=== PATIENT | male | born 1975 | race Caucasian/White ===

== ENCOUNTER 2021-01-27 19:34 | Inpatient (IN) | payer OTHER ==
[2021-01-27] MEDS ORDERED: ACETAMINOPHEN 1000 MG/100 ML VIAL IVPB ONE (21:20)
[2021-01-27] MEDS ORDERED: SODIUM CHLORIDE 0.9% 500 ML INFUS.BAG IV ONE (21:20)
[2021-01-27] MEDS ORDERED: guaiFENesin 200 MG/10 ML 10 ML UNIT-DOSE CUPS PO ONE (21:22)
[2021-01-27] MEDS ORDERED: guaiFENesin/D-METHORPHAN HB 10 ML UNIT-DOSE CUPS ONE (21:30)
[2021-01-27] MEDS ORDERED: ACETAMINOPHEN INJECTION 100 ML IVPB ONE (21:30)
[2021-01-27 22:39] LABS: VENOUS BASE EXCESS 4.3 mmol/L (-2-2); VENOUS O2 SATURATION 63.5 % (70-80); VENOUS PCO2 48.3 mmHg (38-52); VENOUS PH 7.412 (7.310-7.410)
[2021-01-27 22:40] LABS: BASO % 0.7 % (0-2.0); EOS % 0.8 % (0-4.5); HEMATOCRIT 47.2 % (35.4-49); HEMOGLOBIN 16.5 GM/dL (11.7-16.9); MCH 35.8 pg (25.7-33.7); MCHC 34.9 g/dl (32.0-35.9); MEAN CELL VOLUME 102.6 fl (80-96); MEAN PLT VOLUME 8.7 fl (7.5-11.1); MONO % 8.2 % (3.8-10.2); NEUT % 75.3 % (42.8-82.8); PLATELET COUNT 295 10^3/uL (134-434); RBC 4.59 M/mm3 (4.00-5.60); WHITE BLOOD COUNT 7.5 K/mm3 (4.0-10.0)
[2021-01-27 22:59] LABS: CHLORIDE 97 mmol/L (98-107); SODIUM 136 mmol/L (136-145)
[2021-01-27 23:03] LABS: CALCIUM 9.2 mg/dL (8.5-10.1)
[2021-01-27 23:04] LABS: ALBUMIN 3.4 g/dl (3.4-5.0); ANION GAP 6 MMOL/L (8-16); BLOOD UREA NITROGEN 4.9 mg/dL (7-18); CO2 32 mmol/L (21-32); GLUCOSE,RANDOM 121 mg/dL (74-106)
[2021-01-27 23:07] LABS: CREATININE 0.8 mg/dL (0.55-1.3); SGOT/AST 103 U/L (15-37); SGPT/ALT 111 U/L (13-61)
[2021-01-27 23:08] LABS: BILIRUBIN,TOTAL 1.6 mg/dL (0.2-1); LDH 267 U/L (87-246); TOT PROT 7.5 g/dl (6.4-8.2)
[2021-01-27 23:10] LABS: ALK PHOS 122 U/L (45-117)
[2021-01-28 03:00] LABS: URINE APPEARANCE CLEAR; URINE BILIRUBIN 1+ (NEGATIVE); URINE COLOR DK YELLOW; URINE GLUCOSE (UA) NEGATIVE (NEGATIVE); URINE KETONE NEGATIVE (NEGATIVE); URINE LEUK ESTERASE NEGATIVE (NEGATIVE); URINE NITRITE NEGATIVE (NEGATIVE); URINE PROTEIN TRACE (NEGATIVE)
[2021-01-28 08:05] LABS: CHLORIDE 99 mmol/L (98-107); SODIUM 138 mmol/L (136-145)
[2021-01-28 08:08] LABS: ALBUMIN 3.1 g/dl (3.4-5.0)
[2021-01-28 08:09] LABS: ANION GAP 9 MMOL/L (8-16); BLOOD UREA NITROGEN 6.4 mg/dL (7-18); CALCIUM 8.9 mg/dL (8.5-10.1); CO2 30 mmol/L (21-32); GLUCOSE,RANDOM 121 mg/dL (74-106)
[2021-01-28 08:12] LABS: CREATININE 0.7 mg/dL (0.55-1.3); SGOT/AST 91 U/L (15-37); SGPT/ALT 93 U/L (13-61)
[2021-01-28] MEDS: DEXTROSE 5%-0.45% SALINE 1,000 ML IV SCH ×2 (08:12→09:27)
[2021-01-28 08:14] LABS: BILIRUBIN,TOTAL 2.2 mg/dL (0.2-1); TOT PROT 6.8 g/dl (6.4-8.2)
[2021-01-28 08:15] LABS: ALK PHOS 110 U/L (45-117)
[2021-01-28 08:21] LABS: BASO % 2.8 % (0-2.0); EOS % 1.3 % (0-4.5); HEMATOCRIT 44.9 % (35.4-49); HEMOGLOBIN 15.8 GM/dL (11.7-16.9); LYMPH % 17.2 % (8-40); MCH 36.4 pg (25.7-33.7); MCHC 35.1 g/dl (32.0-35.9); MEAN CELL VOLUME 103.8 fl (80-96); MEAN PLT VOLUME 9.5 fl (7.5-11.1); MONO % 6.9 % (3.8-10.2); NEUT % 71.8 % (42.8-82.8); PLATELET COUNT 260 10^3/uL (134-434); RBC 4.33 M/mm3 (4.00-5.60); RDW 15.3 % (11.9-15.9); WHITE BLOOD COUNT 7.1 K/mm3 (4.0-10.0)
[2021-01-28] MEDS ORDERED: cefTRIAXone SODIUM 1 GM VIAL ONE (09:17)
[2021-01-28] MEDS ORDERED: DEXTROSE 5%-WATER - 50 ML IVPB ONE (09:17)
[2021-01-28] MEDS ORDERED: ACETAMINOPHEN 325 MG TABLET (FP) PO PRN (09:23)
[2021-01-28] MEDS ORDERED: ALBUTEROL SO4 HFA INHALER IH PRN (09:24)
[2021-01-28] MEDS: ENOXAPARIN NA (PORCINE) 40 MG/0.4 ML DISP.SYRIN SQ SCH (09:28)
[2021-01-28] MEDS: PANTOPRAZOLE 40 MG TABLET PO SCH (09:28)
[2021-01-28] MEDS: CEFTRIAXONE 1 GM in DEXTROSE 5%-WATER - 50 ML IVPB SCH (09:28)
[2021-01-28] MEDS ORDERED: COLCHICINE 0.6 MG CAP PO SCH (12:45)
[2021-01-28] MEDS ORDERED: CASPOFUNGIN ACETATE 70 MG in SODIUM CHLORIDE 250 ML IVPB ONE (13:00)
[2021-01-28] MEDS: POTASSIUM CHLORIDE TABS 20 MEQ TABLET.ER (FP) PO SCH (13:32)
[2021-01-28] MEDS ORDERED: COLCHICINE 0.6 MG TAB PO SCH (13:49)
[2021-01-28] MEDS: COLCHICINE 0.6 MG TAB PO SCH (14:07)
[2021-01-28 15:15] LABS: HIV INTERPRETATION NEGATIVE (NEGATIVE)
[2021-01-28] MEDS: NYSTATIN 500,000 UNITS/5 ML SUSPENSION PO SCH (18:02)
[2021-01-28] MEDS ORDERED: INDOMETHACIN 50 MG CAPSULE PO ONE (18:15)
[2021-01-29] MEDS: NYSTATIN 500,000 UNITS/5 ML SUSPENSION PO SCH ×4 (01:21→17:44)
[2021-01-29] MEDS: DEXTROSE 5%-0.45% SALINE 1,000 ML IV SCH ×2 (01:23→05:43)
[2021-01-29 08:48] LABS: BASO % 0.8 % (0-2.0); EOS % 0.8 % (0-4.5); HEMATOCRIT 41.8 % (35.4-49); HEMOGLOBIN 14.4 GM/dL (11.7-16.9); LYMPH % 12.2 % (8-40); MCH 36.8 pg (25.7-33.7); MCHC 34.4 g/dl (32.0-35.9); MEAN CELL VOLUME 107.1 fl (80-96); MEAN PLT VOLUME 9.7 fl (7.5-11.1); MONO % 8.2 % (3.8-10.2); PLATELET COUNT 197 10^3/uL (134-434); RBC 3.91 M/mm3 (4.00-5.60); WHITE BLOOD COUNT 6.9 K/mm3 (4.0-10.0)
[2021-01-29] MEDS ORDERED: cefTRIAXone SODIUM 1 GM VIAL ONE (09:05)
[2021-01-29] MEDS ORDERED: DEXTROSE 5%-WATER - 50 ML IVPB ONE (09:05)
[2021-01-29 09:06] LABS: CHLORIDE 100 mmol/L (98-107); SODIUM 139 mmol/L (136-145)
[2021-01-29 09:08] LABS: ALBUMIN 2.8 g/dl (3.4-5.0); CALCIUM 8.2 mg/dL (8.5-10.1)
[2021-01-29 09:09] LABS: ANION GAP 8 MMOL/L (8-16); BLOOD UREA NITROGEN 6.4 mg/dL (7-18); CO2 30 mmol/L (21-32); GLUCOSE,RANDOM 136 mg/dL (74-106)
[2021-01-29 09:11] LABS: SGOT/AST 50 U/L (15-37); SGPT/ALT 71 U/L (13-61)
[2021-01-29 09:12] LABS: CREATININE 0.7 mg/dL (0.55-1.3)
[2021-01-29 09:13] LABS: BILIRUBIN,TOTAL 1.6 mg/dL (0.2-1); TOT PROT 6.4 g/dl (6.4-8.2)
[2021-01-29 09:14] LABS: ALK PHOS 100 U/L (45-117)
[2021-01-29] MEDS: COLCHICINE 0.6 MG TAB PO SCH ×2 (09:54→21:22)
[2021-01-29] MEDS: ENOXAPARIN NA (PORCINE) 40 MG/0.4 ML DISP.SYRIN SQ SCH (09:54)
[2021-01-29] MEDS: POTASSIUM CHLORIDE TABS 20 MEQ TABLET.ER (FP) PO SCH (09:54)
[2021-01-29] MEDS: CEFTRIAXONE 1 GM in DEXTROSE 5%-WATER - 50 ML IVPB SCH (09:55)
[2021-01-29] MEDS: PANTOPRAZOLE 40 MG TABLET PO SCH (09:55)
[2021-01-29 10:13] LABS: ANISOCYTOSIS 1+; MACROCYTOSIS 1+; PLATELET ESTIMATE NORMAL
[2021-01-29] MEDS ORDERED: morphine SULFATE 4 MG/ML VIAL IVPUSH ONE (11:30)
[2021-01-29] MEDS: CASPOFUNGIN ACETATE 50 MG in SODIUM CHLORIDE 250 ML IVPB SCH (14:08)
[2021-01-29] MEDS: morphine SULFATE 4 MG/ML VIAL IVPUSH PRN ×2 (17:42→21:42)
[2021-01-29] MEDS: INDOMETHACIN 50 MG CAPSULE PO SCH (21:41)
[2021-01-30] MEDS: NYSTATIN 500,000 UNITS/5 ML SUSPENSION PO SCH ×4 (00:31→17:46)
[2021-01-30] MEDS ORDERED: ONDANSETRON 4 MG/2 ML VIAL IVPUSH ONE (02:30)
[2021-01-30] MEDS: morphine SULFATE 4 MG/ML VIAL IVPUSH PRN ×6 (02:31→22:59)
[2021-01-30] MEDS: INDOMETHACIN 50 MG CAPSULE PO SCH ×3 (05:45→21:30)
[2021-01-30 08:52] LABS: BASO % 0.5 % (0-2.0); EOS % 0.3 % (0-4.5); HEMATOCRIT 40.6 % (35.4-49); HEMOGLOBIN 14.1 GM/dL (11.7-16.9); LYMPH % 13.9 % (8-40); MCHC 34.7 g/dl (32.0-35.9); MEAN CELL VOLUME 106.6 fl (80-96); MEAN PLT VOLUME 9.6 fl (7.5-11.1); MONO % 10.3 % (3.8-10.2); PLATELET COUNT 193 10^3/uL (134-434); RBC 3.81 M/mm3 (4.00-5.60); WHITE BLOOD COUNT 8.6 K/mm3 (4.0-10.0)
[2021-01-30 09:09] LABS: CHLORIDE 99 mmol/L (98-107); SODIUM 137 mmol/L (136-145)
[2021-01-30 09:12] LABS: ALBUMIN 2.9 g/dl (3.4-5.0); ANION GAP 5 MMOL/L (8-16); BLOOD UREA NITROGEN 4.6 mg/dL (7-18); CALCIUM 8.3 mg/dL (8.5-10.1); CO2 34 mmol/L (21-32); GLUCOSE,RANDOM 129 mg/dL (74-106)
[2021-01-30 09:15] LABS: CREATININE 0.6 mg/dL (0.55-1.3); SGOT/AST 45 U/L (15-37); SGPT/ALT 61 U/L (13-61); URIC ACID 7.9 mg/dL (2.6-7.2)
[2021-01-30 09:17] LABS: BILIRUBIN,TOTAL 1.9 mg/dL (0.2-1); TOT PROT 6.4 g/dl (6.4-8.2)
[2021-01-30 09:18] LABS: ALK PHOS 93 U/L (45-117)
[2021-01-30] MEDS ORDERED: cefTRIAXone SODIUM 1 GM VIAL ONE (10:30)
[2021-01-30] MEDS ORDERED: DEXTROSE 5%-WATER - 50 ML IVPB ONE (10:30)
[2021-01-30] MEDS: PANTOPRAZOLE 40 MG TABLET PO SCH (10:42)
[2021-01-30] MEDS: ENOXAPARIN NA (PORCINE) 40 MG/0.4 ML DISP.SYRIN SQ SCH (10:42)
[2021-01-30] MEDS: POTASSIUM CHLORIDE TABS 20 MEQ TABLET.ER (FP) PO SCH (10:42)
[2021-01-30] MEDS: CEFTRIAXONE 1 GM in DEXTROSE 5%-WATER - 50 ML IVPB SCH (10:43)
[2021-01-30] MEDS: COLCHICINE 0.6 MG TAB PO SCH ×2 (10:43→21:30)
[2021-01-30] MEDS: metoPROLOL SUCCINATE 25 MG TAB.SR.24H (FP) PO SCH (10:43)
[2021-01-30] MEDS: CASPOFUNGIN ACETATE 50 MG in SODIUM CHLORIDE 250 ML IVPB SCH (14:59)
[2021-01-30] MEDS: ONDANSETRON 4 MG/2 ML VIAL IVPUSH PRN ×2 (16:21→22:46)
[2021-01-31] MEDS: NYSTATIN 500,000 UNITS/5 ML SUSPENSION PO SCH ×5 (01:27→23:42)
[2021-01-31] MEDS: morphine SULFATE 4 MG/ML VIAL IVPUSH PRN ×2 (04:18→08:26)
[2021-01-31 07:32] LABS: BASO % 0.6 % (0-2.0); EOS % 0.8 % (0-4.5); HEMATOCRIT 41.6 % (35.4-49); HEMOGLOBIN 14.2 GM/dL (11.7-16.9); LYMPH % 13.7 % (8-40); MCH 36.9 pg (25.7-33.7); MCHC 34.1 g/dl (32.0-35.9); MEAN CELL VOLUME 108.1 fl (80-96); MEAN PLT VOLUME 9.9 fl (7.5-11.1); MONO % 11.5 % (3.8-10.2); NEUT % 73.4 % (42.8-82.8); PLATELET COUNT 198 10^3/uL (134-434); RBC 3.85 M/mm3 (4.00-5.60)
[2021-01-31 07:57] LABS: CALCIUM 8.7 mg/dL (8.5-10.1)
[2021-01-31 07:58] LABS: ALBUMIN 2.8 g/dl (3.4-5.0); BLOOD UREA NITROGEN 6.8 mg/dL (7-18)
[2021-01-31 08:01] LABS: CREATININE 0.7 mg/dL (0.55-1.3)
[2021-01-31 08:02] LABS: BILIRUBIN,TOTAL 2.3 mg/dL (0.2-1); TOT PROT 6.7 g/dl (6.4-8.2)
[2021-01-31] MEDS: INDOMETHACIN 50 MG CAPSULE PO SCH ×3 (08:27→16:47)
[2021-01-31] MEDS ORDERED: cefTRIAXone SODIUM 1 GM VIAL ONE (09:00)
[2021-01-31] MEDS ORDERED: DEXTROSE 5%-WATER - 50 ML IVPB ONE (09:00)
[2021-01-31] MEDS: CEFTRIAXONE 1 GM in DEXTROSE 5%-WATER - 50 ML IVPB SCH (09:06)
[2021-01-31] MEDS: ENOXAPARIN NA (PORCINE) 40 MG/0.4 ML DISP.SYRIN SQ SCH (09:07)
[2021-01-31] MEDS: COLCHICINE 0.6 MG TAB PO SCH ×2 (09:07→21:00)
[2021-01-31] MEDS: metoPROLOL SUCCINATE 25 MG TAB.SR.24H (FP) PO SCH (09:07)
[2021-01-31] MEDS: POTASSIUM CHLORIDE TABS 20 MEQ TABLET.ER (FP) PO SCH (09:07)
[2021-01-31] MEDS: PANTOPRAZOLE 40 MG TABLET PO SCH (09:07)
[2021-01-31] MEDS: morphine SULFATE 4 MG/ML VIAL IVPB PRN ×3 (12:22→20:56)
[2021-01-31] MEDS: CASPOFUNGIN ACETATE 50 MG in SODIUM CHLORIDE 250 ML IVPB SCH (15:03)
[2021-01-31 16:04] VITALS: BMI 41.2
[2021-01-31] MEDS: ONDANSETRON 4 MG/2 ML VIAL IVPUSH PRN (20:56)
[2021-02-01] MEDS ORDERED: morphine SULFATE 4 MG/ML VIAL IVPUSH PRN (01:35)
[2021-02-01] MEDS: NYSTATIN 500,000 UNITS/5 ML SUSPENSION PO SCH ×3 (05:02→17:54)
[2021-02-01] MEDS ORDERED: PT OWN MED DRAWER 7, Y5N ONE (08:31)
[2021-02-01] MEDS ORDERED: cefTRIAXone SODIUM 1 GM VIAL ONE (08:32)
[2021-02-01] MEDS ORDERED: DEXTROSE 5%-WATER - 50 ML IVPB ONE (08:32)
[2021-02-01] MEDS: INDOMETHACIN 50 MG CAPSULE PO SCH ×3 (08:53→16:57)
[2021-02-01] MEDS: PANTOPRAZOLE 40 MG TABLET PO SCH (09:05)
[2021-02-01] MEDS: metoPROLOL SUCCINATE 25 MG TAB.SR.24H (FP) PO SCH (09:05)
[2021-02-01] MEDS: COLCHICINE 0.6 MG TAB PO SCH (09:05)
[2021-02-01] MEDS: POTASSIUM CHLORIDE TABS 20 MEQ TABLET.ER (FP) PO SCH (09:06)
[2021-02-01] MEDS: ENOXAPARIN NA (PORCINE) 40 MG/0.4 ML DISP.SYRIN SQ SCH (09:06)
[2021-02-01] MEDS: CEFTRIAXONE 1 GM in DEXTROSE 5%-WATER - 50 ML IVPB SCH (09:06)
[2021-02-01 09:22] LABS: BASO % 1.2 % (0-2.0); EOS % 1.7 % (0-4.5); HEMATOCRIT 38.8 % (35.4-49); HEMOGLOBIN 13.3 GM/dL (11.7-16.9); LYMPH % 14.3 % (8-40); MCH 36.7 pg (25.7-33.7); MCHC 34.3 g/dl (32.0-35.9); MEAN CELL VOLUME 107.1 fl (80-96); MEAN PLT VOLUME 9.6 fl (7.5-11.1); MONO % 12.9 % (3.8-10.2); NEUT % 69.9 % (42.8-82.8); PLATELET COUNT 225 10^3/uL (134-434); RBC 3.62 M/mm3 (4.00-5.60); RDW 15.1 % (11.9-15.9); WHITE BLOOD COUNT 5.1 K/mm3 (4.0-10.0)
[2021-02-01 11:10] LABS: ANISOCYTOSIS 2+; MACROCYTOSIS 2+; PLATELET ESTIMATE ADEQUATE
[2021-02-01 11:14] LABS: CALCIUM 8.6 mg/dL (8.5-10.1)
[2021-02-01 11:15] LABS: ALBUMIN 2.6 g/dl (3.4-5.0); BLOOD UREA NITROGEN 8.4 mg/dL (7-18)
[2021-02-01 11:18] LABS: CREATININE 0.6 mg/dL (0.55-1.3)
[2021-02-01 11:19] LABS: BILIRUBIN,TOTAL 1.2 mg/dL (0.2-1); TOT PROT 6.3 g/dl (6.4-8.2)
[2021-02-01 11:24] LABS: N-TERMINAL BNP 543.5 pg/ml (5-125)
[2021-02-01] MEDS ORDERED: ACETAMINOPHEN 325 MG TABLET (FP) PO PRN (12:31)
[2021-02-01] MEDS: CASPOFUNGIN ACETATE 50 MG in SODIUM CHLORIDE 250 ML IVPB SCH (14:03)
[2021-02-02] MEDS: NYSTATIN 500,000 UNITS/5 ML SUSPENSION PO SCH ×4 (00:28→17:19)
[2021-02-02 08:29] LABS: BASO % 1.1 % (0-2.0); EOS % 1.5 % (0-4.5); HEMATOCRIT 42.3 % (35.4-49); HEMOGLOBIN 14.7 GM/dL (11.7-16.9); LYMPH % 13.5 % (8-40); MCH 36.7 pg (25.7-33.7); MCHC 34.7 g/dl (32.0-35.9); MEAN CELL VOLUME 105.9 fl (80-96); MEAN PLT VOLUME 9.4 fl (7.5-11.1); MONO % 14.4 % (3.8-10.2); NEUT % 69.5 % (42.8-82.8); PLATELET COUNT 253 10^3/uL (134-434); RDW 15.2 % (11.9-15.9); WHITE BLOOD COUNT 5.9 K/mm3 (4.0-10.0)
[2021-02-02 09:16] LABS: CALCIUM 8.9 mg/dL (8.5-10.1)
[2021-02-02 09:17] LABS: ALBUMIN 2.8 g/dl (3.4-5.0); BLOOD UREA NITROGEN 7.3 mg/dL (7-18)
[2021-02-02 09:20] LABS: CREATININE 0.7 mg/dL (0.55-1.3)
[2021-02-02 09:21] LABS: BILIRUBIN,TOTAL 1.6 mg/dL (0.2-1); TOT PROT 6.7 g/dl (6.4-8.2)
[2021-02-02] MEDS: ENOXAPARIN NA (PORCINE) 40 MG/0.4 ML DISP.SYRIN SQ SCH ×2 (09:35→09:39)
[2021-02-02] MEDS: INDOMETHACIN 50 MG CAPSULE PO SCH ×3 (09:36→17:00)
[2021-02-02] MEDS: COLCHICINE 0.6 MG TAB PO SCH (09:36)
[2021-02-02] MEDS: POTASSIUM CHLORIDE TABS 20 MEQ TABLET.ER (FP) PO SCH (09:36)
[2021-02-02] MEDS: metoPROLOL SUCCINATE 25 MG TAB.SR.24H (FP) PO SCH (09:36)
[2021-02-02] MEDS: PANTOPRAZOLE 40 MG TABLET PO SCH (09:37)
[2021-02-02] MEDS ORDERED: cefTRIAXone SODIUM 1 GM VIAL ONE (09:52)
[2021-02-02] MEDS ORDERED: DEXTROSE 5%-WATER - 50 ML IVPB ONE (09:52)
[2021-02-02] MEDS: CEFTRIAXONE 1 GM in DEXTROSE 5%-WATER - 50 ML IVPB SCH (09:57)
[2021-02-02] MEDS: CASPOFUNGIN ACETATE 50 MG in SODIUM CHLORIDE 250 ML IVPB SCH (12:59)
[2021-02-03] MEDS: NYSTATIN 500,000 UNITS/5 ML SUSPENSION PO SCH ×3 (00:21→11:32)
[2021-02-03 05:57] VITALS: BP 128/88; PULSE 81; TEMP 98.2
[2021-02-03] MEDS ORDERED: cefTRIAXone SODIUM 1 GM VIAL ONE (09:13)
[2021-02-03] MEDS ORDERED: DEXTROSE 5%-WATER - 50 ML IVPB ONE (09:13)
[2021-02-03] MEDS: metoPROLOL SUCCINATE 25 MG TAB.SR.24H (FP) PO SCH (10:17)
[2021-02-03] MEDS: COLCHICINE 0.6 MG TAB PO SCH (10:17)
[2021-02-03] MEDS: INDOMETHACIN 50 MG CAPSULE PO SCH ×2 (10:17→13:05)
[2021-02-03] MEDS: ENOXAPARIN NA (PORCINE) 40 MG/0.4 ML DISP.SYRIN SQ SCH (10:18)
[2021-02-03] MEDS: POTASSIUM CHLORIDE TABS 20 MEQ TABLET.ER (FP) PO SCH (10:18)
[2021-02-03] MEDS: CEFTRIAXONE 1 GM in DEXTROSE 5%-WATER - 50 ML IVPB SCH (10:18)
[2021-02-03] MEDS: PANTOPRAZOLE 40 MG TABLET PO SCH (10:18)
== END 2021-02-03 15:06 | disposition home or self-care (01) | DRG 242 ==
LOC: JER 19:34 → JERBED 01-28 00:06 → J7W 01-28 08:59
PROVIDERS: ADMIT Internal Medicine; ATTEND Internal Medicine
DX: B37.81 Candidal esophagitis (principal); Z68.41 Body mass index [BMI] 40.0-44.9, adult; E66.01 Morbid (severe) obesity due to excess calories; I48.92 Unspecified atrial flutter; R16.0 Hepatomegaly, not elsewhere classified; K76.0 Fatty (change of) liver, not elsewhere classified; K80.20 Calculus of gallbladder without cholecystitis without obstruction; M10.9 Gout, unspecified; R74.8 Abnormal levels of other serum enzymes; K21.9 Gastro-esophageal reflux disease without esophagitis
CPT/HCPCS: 36415; 71045-TC-FY; 71250-TC; 76705-TC; 80053; 80061; 81003; 82550; 82553; 82728; 82803; 83036; 83605; 83615; 83880; 84443; 84484; 84550; 85025; 85379; 86705; 86707; 86708; 87040; 87086; 87340; 87350; 87389; 87522; 87804; 93005; 93010; 93306-TC; 99285-25; C9803; J0131; J0637; U0003; U0005

== ENCOUNTER 2021-04-29 06:20 | Day surgery (SDC) | payer OTHER ==
[2021-04-27 15:59] VITALS: BMI 38.9
[2021-04-29] MEDS ORDERED: oxyCODONE HCL 5 MG TABLET PO PRN ×3 (06:52→09:50)
[2021-04-29] MEDS ORDERED: ACETAMINOPHEN 325 MG TABLET (FP) PO PRN (06:52)
[2021-04-29] MEDS ORDERED: BUPIVACAINE HCL/PF 0.25% (2.5MG/ML) 10 ML VIAL ONE ×2 (07:07→09:22)
[2021-04-29] MEDS ORDERED: PROPOFOL 20 ML ONE ×3 (07:19→08:04)
[2021-04-29] MEDS ORDERED: SUCCINYLCHOLINE CHLORIDE 200 MG/10 ML SYRINGE ONE (07:19)
[2021-04-29] MEDS ORDERED: MIDAZOLAM HCL 2 MG/2 ML SINGLE DOSE VIAL ONE (07:35)
[2021-04-29] MEDS ORDERED: KETAMINE HCL 200 MG/20 ML VIAL ONE (07:36)
[2021-04-29] MEDS ORDERED: ceFAZolin SODIUM 1 GM VIAL IVPB ONE (07:45)
[2021-04-29] MEDS ORDERED: BUPIVACAINE HCL/PF 0.25% (2.5MG/ML) 10 ML VIAL IJ ONE (08:02)
[2021-04-29] MEDS ORDERED: LIDOCAINE HCL/PF 2% SDV 5ML VIAL ONE (08:29)
[2021-04-29] MEDS ORDERED: SODIUM CHLORIDE 0.9% P/F 10 ML VIAL IJ ONE (08:43)
[2021-04-29] MEDS ORDERED: TRANEXAMIC ACID 1000 MG/10 ML VIAL ONE (08:43)
[2021-04-29] MEDS ORDERED: ACETAMINOPHEN 1000 MG/100 ML BAG IVPB ONE (09:50)
[2021-04-29] MEDS ORDERED: LACTATED RINGERS SOLUTION 1,000 ML IV SCH (10:00)
[2021-04-29 10:50] VITALS: TEMP 98
[2021-04-29 11:26] VITALS: BP 135/89; PULSE 85
== END 2021-04-29 11:15 | disposition home or self-care (01) ==
LOC: FASU 06:20
PROVIDERS: ATTEND Orthopaedic Surgery
PROC: 01N50ZZ Release Median Nerve, Open Approach (ICD-10-PCS; principal; 2021-04-29 08:03)
PROC: 0MB30ZZ Excision of Right Elbow Bursa and Ligament, Open Approach (ICD-10-PCS; 2021-04-29 08:03)
DX: G56.01 Carpal tunnel syndrome, right upper limb (principal)
CPT/HCPCS: 87070; 87205; 88304-TC; 88313-TC; 94760

== ENCOUNTER 2021-05-30 20:44 | Emergency (ER) | payer OTHER ==
[2021-05-30] MEDS ORDERED: KETOROLAC TROMETHAMINE 60 MG/2 ML VIAL IM ONE (21:07)
[2021-05-30 21:09] VITALS: BP 122/72; PULSE 64; TEMP 98; BMI 38.9
[2021-05-30] MEDS ORDERED: KETOROLAC TROMETHAMINE 60 MG/2 ML VIAL ONE (21:09)
[2021-05-30 22:21] LABS: ALBUMIN 3.2 g/dl (3.4-5.0); BILIRUBIN,TOTAL 1.5 mg/dl (0.2-1); CALCIUM 9.8 mg/dl (8.5-10); CREATININE 0.9 mg/dl (0.55-1.3); TOT PROT 7.2 g/dl (6.4-8.2)
[2021-05-30 23:44] LABS: BASO % 1.3 % (0-2.0); EOS % 2.1 % (0-4.5); HEMATOCRIT 47.2 % (35.4-49); HEMOGLOBIN 15.9 GM/dL (11.7-16.9); LYMPH % 16.7 % (8-40); MCH 32.7 pg (25.7-33.7); MCHC 33.8 g/dl (32.0-35.9); MEAN CELL VOLUME 96.9 fl (80-96); MEAN PLT VOLUME 9.4 fl (7.5-11.1); MONO % 11.3 % (3.8-10.2); NEUT % 68.6 % (42.8-82.8); PLATELET COUNT 359 10^3/uL (134-434); RBC 4.87 M/mm3 (4.00-5.60); RDW 17.3 % (11.9-15.9)
== END 2021-05-31 02:16 | disposition home or self-care (01) ==
LOC: FER 20:44
PROC: 3E023GC Introduction of Other Therapeutic Substance into Muscle, Percutaneous Approach (ICD-10-PCS; principal; 2021-05-30)
DX: M25.561 Pain in right knee (principal)
CPT/HCPCS: 36415; 73562-TC-RT-FY; 80053; 82550; 84484; 85025; 93005; 99285-25

== ENCOUNTER 2021-07-07 05:53 | Day surgery (SDC) | payer OTHER ==
[2021-07-01 16:08] VITALS: BMI 35.0
[2021-07-07] MEDS ORDERED: ONDANSETRON 4 MG/2 ML VIAL ONE (07:01)
[2021-07-07] MEDS ORDERED: DEXAMETHASONE SOD PHOSPHATE 4 MG/1 ML VIAL ONE (07:01)
[2021-07-07] MEDS ORDERED: PROPOFOL 20 ML ONE ×3 (07:01→08:37)
[2021-07-07] MEDS ORDERED: MIDAZOLAM HCL 2 MG/2 ML SINGLE DOSE VIAL ONE (07:01)
[2021-07-07] MEDS ORDERED: LIDOCAINE HCL 1%, 10 MG/ML (20ML VIAL) ONE (07:07)
[2021-07-07] MEDS ORDERED: BUPIVACAINE HCL/PF 2.5 MG/ML - 30 ML VIAL IJ ONE (07:17)
[2021-07-07] MEDS ORDERED: oxyCODONE HCL 5 MG TABLET PO PRN ×2 (07:24→09:19)
[2021-07-07] MEDS ORDERED: IBUPROFEN 400 MG TABLET (FP) PO PRN (07:24)
[2021-07-07] MEDS ORDERED: ACETAMINOPHEN 325 MG TABLET (FP) PO PRN (07:24)
[2021-07-07] MEDS ORDERED: FAMOTIDINE 20 MG/50 ML IVPB 20 MG/50 ML MG IVPB ONE (07:26)
[2021-07-07] MEDS ORDERED: METOPROLOL TARTRATE 5 MG/5 ML VIAL ONE (07:26)
[2021-07-07] MEDS ORDERED: PHENYLEPHRINE HCL 10 MG/1 ML SINGLE DOSE VIAL ONE (07:46)
[2021-07-07] MEDS ORDERED: LACTATED RINGERS SOLUTION 1,000 ML IV SCH (09:30)
[2021-07-07 11:14] VITALS: BP 110/70; PULSE 77; TEMP 97.3
== END 2021-07-07 11:00 | disposition home or self-care (01) ==
LOC: FASU 05:53
PROVIDERS: ATTEND Orthopaedic Surgery
PROC: 01N50ZZ Release Median Nerve, Open Approach (ICD-10-PCS; principal; 2021-07-07 08:03)
PROC: 0MT40ZZ Resection of Left Elbow Bursa and Ligament, Open Approach (ICD-10-PCS; 2021-07-07 08:03)
DX: G56.02 Carpal tunnel syndrome, left upper limb (principal)
CPT/HCPCS: 88304-TC; 88313-TC; 94760

== ENCOUNTER 2021-07-21 14:35 | Day surgery (SDC) | payer OTHER ==
[2021-07-21 14:45] VITALS: BMI 34.9
[2021-07-21] MEDS ORDERED: dilTIAZem HCL 50 MG/10 ML - 10 ML VIAL IVPUSH ONE ×2 (15:02→15:18)
[2021-07-21] MEDS ORDERED: dilTIAZem HCL 125 MG/25 ML - 25 ML VIAL ONE (15:04)
[2021-07-21] MEDS ORDERED: VANCOMYCIN 1,000 MG VIAL (RESTRICTED TO ID ONLY) ONE (15:16)
[2021-07-21] MEDS ORDERED: ceFAZolin SODIUM 1 GM VIAL ONE ×3 (15:16→23:52)
[2021-07-21] MEDS ORDERED: SODIUM CHLORIDE 1,000 ML IV ONE (15:23)
[2021-07-21 15:24] LABS: HEMATOCRIT 50.4 % (35.4-49); HEMOGLOBIN 16.8 G/dL (11.7-16.9); INR 1.26 (0.83-1.09); MCH 30.6 pg (25.7-33.7); MCHC 33.3 g/dl (32.0-35.9); MEAN CELL VOLUME 91.8 fl (80-96); MEAN PLT VOLUME 8.9 fl (7.5-11.1); PLATELET COUNT 338.6 10^3/uL (134-434); PROTHROMBIN TIME (PATIENT) 14.5 SEC (9.7-13.0); RBC 5.49 10^6/uL (4.00-5.60); RDW 15.4 % (11.9-15.9); WHITE BLOOD COUNT 9.1 10^3/uL (4.0-10.8)
[2021-07-21] MEDS ORDERED: LIDOCAINE 1%/EPI 1:100000 (20 ML MULTI DOSE VIAL) ONE (15:25)
[2021-07-21 15:29] LABS: CALCIUM 9.3 mg/dl (8.5-10); CREATININE 0.9 mg/dl (0.55-1.3)
[2021-07-21] MEDS ORDERED: MIDAZOLAM HCL 2 MG/2 ML SINGLE DOSE VIAL ONE ×3 (15:44→16:17)
[2021-07-21] MEDS ORDERED: PROPOFOL 20 ML ONE ×2 (15:44)
[2021-07-21] MEDS ORDERED: DEXAMETHASONE SOD PHOSPHATE 4 MG/1 ML VIAL ONE (15:54)
[2021-07-21] MEDS ORDERED: ONDANSETRON 4 MG/2 ML VIAL ONE (15:54)
[2021-07-21] MEDS ORDERED: KETOROLAC TROMETHAMINE 30 MG/1 ML VIAL ONE (15:54)
[2021-07-21] MEDS ORDERED: BENZOIN/ALOE VERA/STORAX/TOLU 30 ML TINCTURE ONE (16:40)
[2021-07-21] MEDS ORDERED: GUM MASTIC/STORAX/MSAL/ALCOHOL 1 DRP DROPSBTL MC ONE (16:42)
[2021-07-21] MEDS: ACETAMINOPHEN 1000 MG/100 ML BAG IVPB ONE ×2 (16:55→18:03)
[2021-07-21] MEDS ORDERED: ACETAMINOPHEN INJECTION 100 ML IVPB ONE (16:55)
[2021-07-21] MEDS: oxyCODONE HCL 10 MG SUSTAINED ACTING TABLET PO SCH (16:55)
[2021-07-21] MEDS ORDERED: PROMETHAZINE HCL 25 MG/1 ML VIAL IVPUSH PRN (16:58)
[2021-07-21] MEDS ORDERED: oxyCODONE HCL 10 MG SUSTAINED ACTING TABLET ONE (16:58)
[2021-07-21] MEDS ORDERED: ONDANSETRON 4 MG/2 ML VIAL IVPUSH PRN (16:58)
[2021-07-21] MEDS ORDERED: oxyCODONE HCL 5 MG TABLET PO PRN (16:58)
[2021-07-21] MEDS ORDERED: ACETAMINOPHEN 325 MG TABLET (FP) PO SCH ×2 (17:15)
[2021-07-21] MEDS: oxyCODONE HCL 5 MG TABLET PO PRN (21:04)
[2021-07-21] MEDS ORDERED: DEXTROSE 5%-WATER - 100 ML IVPB ONE (23:52)
[2021-07-21] MEDS: ACETAMINOPHEN 325 MG TABLET (FP) PO SCH (23:59)
[2021-07-21] MEDS: CEFAZOLIN 2 GM in DEXTROSE 5%-WATER - 100 ML IVPB SCH (23:59)
[2021-07-22] MEDS: oxyCODONE HCL 5 MG TABLET PO PRN (01:00)
[2021-07-22] MEDS: HYDROmorphone HCl 2 MG/ML VIAL IVPB PRN ×2 (03:40→09:59)
[2021-07-22] MEDS ORDERED: oxyCODONE HCL 5 MG TABLET PO PRN ×2 (03:47→03:48)
[2021-07-22] MEDS ORDERED: HYDROmorphone HCl 2 MG/ML VIAL ONE (04:00)
[2021-07-22] MEDS ORDERED: MAG HYDROX/AL HYDROX/SIMETH 30 ML UNIT-DOSE CUP PO PRN (05:27)
[2021-07-22] MEDS: KETOROLAC TROMETHAMINE 30 MG/1 ML VIAL IVPUSH SCH ×2 (05:53→12:39)
[2021-07-22] MEDS: ACETAMINOPHEN 325 MG TABLET (FP) PO SCH ×4 (06:07→12:40)
[2021-07-22] MEDS: INSULIN SLIDING SCALE (NOVOLOG) 1 VIAL SQ SCH ×2 (07:27→11:56)
[2021-07-22] MEDS: oxyCODONE HCL 10 MG SUSTAINED ACTING TABLET PO SCH (09:11)
[2021-07-22] MEDS: CEFAZOLIN 2 GM in DEXTROSE 5%-WATER - 100 ML IVPB SCH (09:13)
[2021-07-22] MEDS ORDERED: ALLOPURINOL 300 MG TABLET (FP) PO SCH (10:00)
[2021-07-22] MEDS ORDERED: metFORMIN HCL 500 MG TABLET (FP) PO SCH (10:00)
[2021-07-22] MEDS ORDERED: clonazePAM 2 MG TABLET PO SCH (10:00)
[2021-07-22] MEDS ORDERED: CARVEDILOL 3.125 MG TABLET (FP) PO SCH (10:00)
[2021-07-22] MEDS ORDERED: PANTOPRAZOLE SOD 40 MG SUSPENSION PACKET PO SCH (10:00)
[2021-07-22] MEDS ORDERED: PANTOPRAZOLE 40 MG TABLET PO SCH (10:00)
[2021-07-22] MEDS ORDERED: COLCHICINE 0.6 MG CAPSULE PO SCH (10:00)
[2021-07-22 14:03] VITALS: BP 108/70; PULSE 86; TEMP 97.9
[2021-07-22] MEDS ORDERED: ATORVASTATIN CA 10 MG TABLET (FP) PO SCH (22:00)
== END 2021-07-22 15:31 | disposition home or self-care (01) ==
LOC: FER 14:35 → FASUSAT 15:34 → SUATTDRO 15:34 → FM/S 17:57 → FASUSAT 07-22 15:31
PROVIDERS: ATTEND Nurse Practitioner Acute Care
PROC: 3E033GC Introduction of Other Therapeutic Substance into Peripheral Vein, Percutaneous Approach (ICD-10-PCS; principal; 2021-07-21 16:06)
DX: I48.91 Unspecified atrial fibrillation (principal); M79.89 Other specified soft tissue disorders
CPT/HCPCS: 36415; 80048; 82962; 85025; 85610; 86850; 86900; 86901; 87070; 87186; 87205; 93005; 94760; 99291; C9803-CS; U0003; U0005

== ENCOUNTER 2022-03-12 23:21 | Emergency (ER) | payer OTHER ==
[2022-03-12 23:38] VITALS: BP 121/85; PULSE 93; RESP 18; TEMP 97.9; BMI 34.9
[2022-03-12] MEDS ORDERED: KETOROLAC TROMETHAMINE 60 MG/2 ML VIAL IM ONE (23:57)
[2022-03-12] MEDS ORDERED: KETOROLAC TROMETHAMINE 60 MG/2 ML VIAL ONE (23:59)
== END 2022-03-13 00:04 | disposition home or self-care (01) ==
LOC: FER 23:21
PROC: 3E0233Z Introduction of Anti-inflammatory into Muscle, Percutaneous Approach (ICD-10-PCS; principal; 2022-03-12)
DX: M70.22 Olecranon bursitis, left elbow (principal)
CPT/HCPCS: 99284-25

== ENCOUNTER 2022-07-26 23:35 | Inpatient (IN) | payer OTHER ==
[2022-07-26] MEDS ORDERED: SODIUM CHLORIDE 0.9% 500 ML INFUS.BAG IV ONE (23:58)
[2022-07-27] MEDS ORDERED: ONDANSETRON 4 MG/2 ML VIAL IVPUSH ONE (00:45)
[2022-07-27] MEDS ORDERED: ONDANSETRON 4 MG/2 ML VIAL ONE (00:46)
[2022-07-27] MEDS ORDERED: ACETAMINOPHEN 325 MG TABLET (FP) PO PRN (03:17)
[2022-07-27] MEDS ORDERED: LACTATED RINGERS SOLUTION 1000 ML INFUS.BAG IV ONE (04:27)
[2022-07-27] MEDS ORDERED: PROCHLORPERAZINE INJECTION 10 MG/2 ML VIAL IVPB PRN (04:44)
[2022-07-27 07:11] LABS: HEMATOCRIT 29.3 % (35.4-49); HEMOGLOBIN 9.1 GM/dL (11.7-16.9); MCH 22.3 pg (25.7-33.7); MEAN PLT VOLUME 9.5 fl (7.5-11.1); PLATELET COUNT 305 10^3/uL (134-434); RBC 4.07 M/mm3 (4.00-5.60); RDW 18.2 % (11.9-15.9); WHITE BLOOD COUNT 6.1 K/mm3 (4.0-10.0)
[2022-07-27 07:28] LABS: POTASSIUM 3.4 mmol/L (3.5-5.1)
[2022-07-27 07:33] LABS: BLOOD UREA NITROGEN 11.4 mg/dL (7-18); CALCIUM 8.9 mg/dL (8.5-10.1); MAGNESIUM 1.5 mg/dL (1.8-2.4)
[2022-07-27 07:36] LABS: BILIRUBIN,DIRECT 0.4 mg/dL (0.0-0.2); CREATININE 0.8 mg/dL (0.55-1.3)
[2022-07-27 07:37] LABS: PHOSPHOROUS 4.6 mg/dL (2.5-4.9)
[2022-07-27] MEDS: INSULIN SLIDING SCALE (NOVOLOG) 1 VIAL SQ SCH (08:00)
[2022-07-27] MEDS ORDERED: POTASSIUM CHLORIDE ORAL LIQUID 20 MEQ/15 ML PO ONE (08:37)
[2022-07-27] MEDS ORDERED: MAGNESIUM 2GM/50ML STERILE WATER IVPB IVPB ONE (08:37)
[2022-07-27] MEDS ORDERED: TOPIRAMATE 25 MG TABLET ONE (09:13)
[2022-07-27] MEDS ORDERED: COLCHICINE 0.6 MG TAB ONE (09:13)
[2022-07-27] MEDS ORDERED: buPROPion HCL 100 MG TABLET ONE ×2 (09:13→09:15)
[2022-07-27] MEDS ORDERED: APIXABAN 5 MG TABLET ONE (09:13)
[2022-07-27] MEDS ORDERED: POTASSIUM CHLORIDE ORAL LIQUID 20 MEQ/15 ML ONE (09:14)
[2022-07-27] MEDS ORDERED: MAGNESIUM SULFATE IN WATER 2 GM/50 ML IVPB IVPB ONE (09:14)
[2022-07-27] MEDS: PANTOPRAZOLE SOD 40 MG SUSPENSION PACKET PO SCH (09:32)
[2022-07-27] MEDS: CYANOCOBALAMIN 1,000 MCG TABLET (FP) PO SCH (09:32)
[2022-07-27] MEDS: APIXABAN 5 MG TABLET PO SCH ×2 (09:32→21:40)
[2022-07-27] MEDS: COLCHICINE 0.6 MG TAB PO SCH (09:32)
[2022-07-27] MEDS: CARVEDILOL 3.125 MG TABLET (FP) PO SCH ×2 (09:32→21:37)
[2022-07-27] MEDS: UMECLIDINIUM/VILANTEROL (ANORO) 62.5/25 MCG INHALER IH SCH (09:32)
[2022-07-27] MEDS: ALLOPURINOL 100 MG TABLET (FP) PO SCH ×2 (09:33→21:38)
[2022-07-27] MEDS ORDERED: IRON SUCROSE INJECTION 200 MG in SODIUM CHLORIDE 90 ML IVPB ONE (10:00)
[2022-07-27] MEDS ORDERED: PATIENT'S OWN MEDICATION (NON-FORMULARY) (Bupropion Hcl [Bupropion Hcl Sr] 150 MG Tab.Sr.1 PO SCH (10:00)
[2022-07-27] MEDS ORDERED: TOPIRAMATE 100 MG TABLET PO SCH (10:00)
[2022-07-27] MEDS ORDERED: VILAZODONE HYDROCHLORIDE 40 MG TABLET PO SCH (10:00)
[2022-07-27] MEDS ORDERED: ALLOPURINOL 300 MG TABLET (FP) PO SCH ×2 (10:00)
[2022-07-27] MEDS ORDERED: ALLOPURINOL 200 MG PO SCH (10:00)
[2022-07-27] MEDS ORDERED: SODIUM CHLORIDE 1,000 ML IV SCH ×2 (14:15)
[2022-07-27] MEDS: ALPRAZolam 1 MG TABLET PO PRN ×2 (14:37→21:38)
[2022-07-27 17:07] VITALS: BMI 28.0
[2022-07-27] MEDS: ZOLPIDEM TARTRATE 5 MG TABLET PO PRN (21:38)
[2022-07-27] MEDS: TOPIRAMATE 25 MG TABLET PO SCH (23:07)
[2022-07-28] MEDS: COLCHICINE 0.6 MG TAB PO SCH (09:19)
[2022-07-28] MEDS: APIXABAN 5 MG TABLET PO SCH (09:19)
[2022-07-28] MEDS: CYANOCOBALAMIN 1,000 MCG TABLET (FP) PO SCH (09:20)
[2022-07-28] MEDS: ALLOPURINOL 100 MG TABLET (FP) PO SCH ×2 (09:20→21:10)
[2022-07-28] MEDS: PANTOPRAZOLE SOD 40 MG SUSPENSION PACKET PO SCH (09:22)
[2022-07-28] MEDS: TOPIRAMATE 25 MG TABLET PO SCH ×2 (09:22→21:16)
[2022-07-28 09:32] LABS: BASO % 1.7 % (0-2.0); EOS % 1.5 % (0-4.5); HEMATOCRIT 25.2 % (35.4-49); HEMOGLOBIN 7.3 GM/dL (11.7-16.9); LYMPH % 20.8 % (8-40); MCHC 28.9 g/dl (32.0-35.9); MEAN CELL VOLUME 72.5 fl (80-96); PLATELET COUNT 258 10^3/uL (134-434); RBC 3.47 M/mm3 (4.00-5.60); RDW 18.3 % (11.9-15.9); WHITE BLOOD COUNT 4.6 K/mm3 (4.0-10.0)
[2022-07-28 09:51] LABS: POTASSIUM 3.3 mmol/L (3.5-5.1)
[2022-07-28 09:53] LABS: BLOOD UREA NITROGEN 7.9 mg/dL (7-18); CALCIUM 8.1 mg/dL (8.5-10.1)
[2022-07-28 09:54] LABS: ALBUMIN 3.1 g/dl (3.4-5.0); MAGNESIUM 1.8 mg/dL (1.8-2.4)
[2022-07-28 09:56] LABS: BILIRUBIN,DIRECT 0.3 mg/dL (0.0-0.2); PHOSPHOROUS 3.6 mg/dL (2.5-4.9)
[2022-07-28 09:57] LABS: ANISOCYTOSIS 3+; CREATININE 0.9 mg/dL (0.55-1.3); MACROCYTOSIS 1+
[2022-07-28 09:58] LABS: BILIRUBIN,TOTAL 0.8 mg/dL (0.2-1); TOT PROT 6.2 g/dl (6.4-8.2)
[2022-07-28] MEDS ORDERED: PIPERACILLIN/TAZOB 3.375 GM 3.375 GM in DEXTROSE 5%-WATER - 50 ML IVPB SCH (10:00)
[2022-07-28] MEDS ORDERED: POTASSIUM CHLORIDE TABS 20 MEQ TABLET.ER (FP) PO ONE (10:04)
[2022-07-28] MEDS: UMECLIDINIUM/VILANTEROL (ANORO) 62.5/25 MCG INHALER IH SCH (10:38)
[2022-07-28 10:42] LABS: METHADONE, UR NEGATIVE (NEGATIVE); OPIATES, URI NEGATIVE (NEGATIVE); PHENCYCLIDINE,URINE NEGATIVE (NEGATIVE); URINE BARBITURATES NEGATIVE (NEGATIVE)
[2022-07-28 10:43] LABS: COCAINE, UR NEGATIVE (NEGATIVE); URINE AMPHETAMINES POSITIVE (NEGATIVE); URINE BENZODIAZEPINES POSITIVE (NEGATIVE)
[2022-07-28] MEDS: VILAZODONE HYDROCHLORIDE 20 MG TABLET PO SCH (12:00)
[2022-07-28] MEDS ORDERED: MAGNESIUM 2GM/50ML STERILE WATER IVPB IVPB ONE (12:52)
[2022-07-28] MEDS ORDERED: LACTATED RINGERS SOLUTION 1,000 ML/1,000 ML INFUS.BAG IV SCH (13:00)
[2022-07-28] MEDS: INSULIN SLIDING SCALE (NOVOLOG) 1 VIAL SQ SCH ×2 (14:00→17:40)
[2022-07-28] MEDS ORDERED: ALPRAZolam 2 MG TABLET PO PRN (16:30)
[2022-07-28] MEDS ORDERED: ALPRAZolam 1 MG TABLET PO PRN ×2 (16:35→16:41)
[2022-07-28] MEDS: KCL 10 MEQ IVPB 10 MEQ/100 ML INFUS.BAG IVPB SCH ×3 (17:41→22:57)
[2022-07-28] MEDS: LACTATED RINGERS SOLUTION 1,000 ML/1,000 ML INFUS.BAG IV SCH (17:43)
[2022-07-28] MEDS: ZOLPIDEM TARTRATE 5 MG TABLET PO PRN (21:10)
[2022-07-29 07:31] LABS: HEMATOCRIT 26.1 % (35.4-49); HEMOGLOBIN 8.1 GM/dL (11.7-16.9); MCH 22.8 pg (25.7-33.7); MEAN CELL VOLUME 73.6 fl (80-96); MEAN PLT VOLUME 9.9 fl (7.5-11.1); PLATELET COUNT 237 10^3/uL (134-434); RBC 3.55 M/mm3 (4.00-5.60); RDW 19.1 % (11.9-15.9); WHITE BLOOD COUNT 4.4 K/mm3 (4.0-10.0)
[2022-07-29 07:45] LABS: POTASSIUM 3.5 mmol/L (3.5-5.1)
[2022-07-29 07:47] LABS: CALCIUM 8.2 mg/dL (8.5-10.1); INR 1.26 (0.83-1.09); PROTHROMBIN TIME (PATIENT) 14.6 SEC (9.7-13.0)
[2022-07-29 07:48] LABS: ALBUMIN 3.2 g/dl (3.4-5.0); BLOOD UREA NITROGEN 6.5 mg/dL (7-18)
[2022-07-29 07:49] LABS: MAGNESIUM 1.8 mg/dL (1.8-2.4)
[2022-07-29 07:51] LABS: CREATININE 0.8 mg/dL (0.55-1.3); PHOSPHOROUS 2.9 mg/dL (2.5-4.9)
[2022-07-29 07:52] LABS: BILIRUBIN,TOTAL 1.1 mg/dL (0.2-1)
[2022-07-29 07:53] LABS: TOT PROT 6.3 g/dl (6.4-8.2)
[2022-07-29 10:00] LABS: HEMATOCRIT 25.9 % (35.4-49); HEMOGLOBIN 7.7 GM/dL (11.7-16.9); MCH 22.1 pg (25.7-33.7); MCHC 29.7 g/dl (32.0-35.9); MEAN CELL VOLUME 74.4 fl (80-96); PLATELET COUNT 229 10^3/uL (134-434); RBC 3.48 M/mm3 (4.00-5.60); RDW 19.5 % (11.9-15.9); WHITE BLOOD COUNT 4.1 K/mm3 (4.0-10.0)
[2022-07-29] MEDS: COLCHICINE 0.6 MG TAB PO SCH (10:29)
[2022-07-29] MEDS: ALLOPURINOL 100 MG TABLET (FP) PO SCH ×2 (10:29→21:36)
[2022-07-29] MEDS: CEFTRIAXONE 1 GM in DEXTROSE 5%-WATER - 50 ML IVPB SCH (10:30)
[2022-07-29] MEDS: UMECLIDINIUM/VILANTEROL (ANORO) 62.5/25 MCG INHALER IH SCH (10:30)
[2022-07-29] MEDS: PANTOPRAZOLE SOD 40 MG SUSPENSION PACKET PO SCH (10:30)
[2022-07-29] MEDS: CYANOCOBALAMIN 1,000 MCG TABLET (FP) PO SCH (10:31)
[2022-07-29] MEDS: TOPIRAMATE 25 MG TABLET PO SCH ×2 (10:38→21:35)
[2022-07-29] MEDS: INSULIN SLIDING SCALE (NOVOLOG) 1 VIAL SQ SCH ×2 (12:08→16:30)
[2022-07-29] MEDS: VILAZODONE HYDROCHLORIDE 20 MG TABLET PO SCH (12:08)
[2022-07-29] MEDS: LACTATED RINGERS SOLUTION 1,000 ML/1,000 ML INFUS.BAG IV SCH (14:00)
[2022-07-29] MEDS: ALPRAZolam 1 MG TABLET PO PRN (21:35)
[2022-07-29] MEDS: ZOLPIDEM TARTRATE 5 MG TABLET PO PRN (21:36)
[2022-07-30] MEDS: INSULIN SLIDING SCALE (NOVOLOG) 1 VIAL SQ SCH ×4 (05:51→16:30)
[2022-07-30] MEDS: ALPRAZolam 1 MG TABLET PO PRN ×2 (10:41→21:46)
[2022-07-30] MEDS: CYANOCOBALAMIN 1,000 MCG TABLET (FP) PO SCH (10:41)
[2022-07-30] MEDS: CEFTRIAXONE 1 GM in DEXTROSE 5%-WATER - 50 ML IVPB SCH (10:41)
[2022-07-30] MEDS: ALLOPURINOL 100 MG TABLET (FP) PO SCH ×2 (10:41→21:47)
[2022-07-30] MEDS: PANTOPRAZOLE SOD 40 MG SUSPENSION PACKET PO SCH (10:42)
[2022-07-30] MEDS: COLCHICINE 0.6 MG TAB PO SCH (10:42)
[2022-07-30] MEDS: UMECLIDINIUM/VILANTEROL (ANORO) 62.5/25 MCG INHALER IH SCH (10:42)
[2022-07-30] MEDS: TOPIRAMATE 25 MG TABLET PO SCH ×2 (10:42→21:47)
[2022-07-30 10:50] LABS: HEMOGLOBIN 7.9 GM/dL (11.7-16.9); MCH 22.6 pg (25.7-33.7); MCHC 30.5 g/dl (32.0-35.9); MEAN CELL VOLUME 74.3 fl (80-96); MEAN PLT VOLUME 8.8 fl (7.5-11.1); PLATELET COUNT 223 10^3/uL (134-434); RDW 19.5 % (11.9-15.9); WHITE BLOOD COUNT 5.1 K/mm3 (4.0-10.0)
[2022-07-30] MEDS: VILAZODONE HYDROCHLORIDE 20 MG TABLET PO SCH (11:00)
[2022-07-30 11:06] LABS: POTASSIUM 3.6 mmol/L (3.5-5.1)
[2022-07-30 11:16] LABS: BLOOD UREA NITROGEN 10.1 mg/dL (7-18); CALCIUM 8.6 mg/dL (8.5-10.1)
[2022-07-30 11:19] LABS: CREATININE 0.8 mg/dL (0.55-1.3)
[2022-07-30 11:21] LABS: BILIRUBIN,TOTAL 0.6 mg/dL (0.2-1); TOT PROT 6.1 g/dl (6.4-8.2)
[2022-07-30 17:59] LABS: PH,URINE 7.5 (5.0-8.0); URINE APPEARANCE CLEAR; URINE BILIRUBIN NEGATIVE (NEGATIVE); URINE COLOR YELLOW; URINE GLUCOSE (UA) NEGATIVE (NEGATIVE); URINE KETONE NEGATIVE (NEGATIVE); URINE LEUK ESTERASE NEGATIVE (NEGATIVE); URINE NITRITE NEGATIVE (NEGATIVE); URINE PROTEIN NEGATIVE (NEGATIVE)
[2022-07-30] MEDS: ZOLPIDEM TARTRATE 5 MG TABLET PO PRN (21:46)
[2022-07-31 08:36] LABS: INR 1.22 (0.83-1.09); PROTHROMBIN TIME (PATIENT) 14.1 SEC (9.7-13.0)
[2022-07-31 08:38] LABS: ACTIVATED PTT 27.7 SECONDS (25.2-36.5)
[2022-07-31 08:48] LABS: POTASSIUM 3.4 mmol/L (3.5-5.1)
[2022-07-31 08:49] LABS: BASO % 1.6 % (0-2.0); EOS % 2.1 % (0-4.5); HEMATOCRIT 26.8 % (35.4-49); HEMOGLOBIN 8.1 GM/dL (11.7-16.9); MCH 22.6 pg (25.7-33.7); MCHC 30.2 g/dl (32.0-35.9); MEAN CELL VOLUME 74.9 fl (80-96); MEAN PLT VOLUME 9.2 fl (7.5-11.1); MONO % 9.6 % (3.8-10.2); NEUT % 63.7 % (42.8-82.8); PLATELET COUNT 231 10^3/uL (134-434); RBC 3.57 M/mm3 (4.00-5.60); RDW 20.1 % (11.9-15.9); WHITE BLOOD COUNT 5.1 K/mm3 (4.0-10.0)
[2022-07-31 08:50] LABS: ALBUMIN 3.1 g/dl (3.4-5.0); BLOOD UREA NITROGEN 8.3 mg/dL (7-18); CALCIUM 8.6 mg/dL (8.5-10.1); MAGNESIUM 1.5 mg/dL (1.8-2.4)
[2022-07-31 08:53] LABS: PHOSPHOROUS 4.1 mg/dL (2.5-4.9)
[2022-07-31 08:54] LABS: CREATININE 0.7 mg/dL (0.55-1.3)
[2022-07-31 08:55] LABS: BILIRUBIN,TOTAL 0.7 mg/dL (0.2-1); TOT PROT 6.1 g/dl (6.4-8.2)
[2022-07-31] MEDS ORDERED: PEG 3350/NA SULF BICARB CL/KCL 4000 ML SOLN.RECON PO ONE (09:49)
[2022-07-31] MEDS: COLCHICINE 0.6 MG TAB PO SCH (10:54)
[2022-07-31] MEDS: PANTOPRAZOLE SOD 40 MG SUSPENSION PACKET PO SCH (10:54)
[2022-07-31] MEDS: ALLOPURINOL 100 MG TABLET (FP) PO SCH ×2 (10:54→21:24)
[2022-07-31] MEDS: CYANOCOBALAMIN 1,000 MCG TABLET (FP) PO SCH (10:55)
[2022-07-31] MEDS: ALPRAZolam 1 MG TABLET PO PRN ×2 (11:00→21:25)
[2022-07-31] MEDS ORDERED: IRON SUCROSE INJECTION 200 MG in SODIUM CHLORIDE 90 ML IVPB ONE (11:00)
[2022-07-31] MEDS: CEFTRIAXONE 1 GM in DEXTROSE 5%-WATER - 50 ML IVPB SCH (11:04)
[2022-07-31] MEDS: UMECLIDINIUM/VILANTEROL (ANORO) 62.5/25 MCG INHALER IH SCH (11:04)
[2022-07-31] MEDS: VILAZODONE HYDROCHLORIDE 20 MG TABLET PO SCH (11:05)
[2022-07-31] MEDS: TOPIRAMATE 25 MG TABLET PO SCH ×2 (11:07→21:24)
[2022-07-31] MEDS: INSULIN SLIDING SCALE (NOVOLOG) 1 VIAL SQ SCH ×2 (11:30→16:30)
[2022-07-31] MEDS ORDERED: POTASSIUM CHLORIDE TABS 20 MEQ TABLET.ER (FP) PO ONE (15:35)
[2022-07-31] MEDS ORDERED: MAGNESIUM SULF 50% (8.12 MEQ/2 ML-1 GM VIAL) IVPB ONE (15:35)
[2022-07-31] MEDS ORDERED: POTASSIUM CHLORIDE ORAL LIQUID 20 MEQ/15 ML PO ONE (15:44)
[2022-07-31] MEDS: POTASSIUM CHLORIDE TABS 20 MEQ TABLET.ER (FP) PO SCH (16:13)
[2022-07-31] MEDS ORDERED: MAGNESIUM 2GM/50ML STERILE WATER IVPB IVPB ONE (16:30)
[2022-07-31] MEDS ORDERED: BISACODYL 5 MG TABLET.DR (FP) PO ONE (20:00)
[2022-07-31] MEDS: ZOLPIDEM TARTRATE 5 MG TABLET PO PRN (21:27)
[2022-08-01] MEDS: INSULIN SLIDING SCALE (NOVOLOG) 1 VIAL SQ SCH ×3 (06:39→18:06)
[2022-08-01 07:50] LABS: HEMATOCRIT 30.8 % (35.4-49); HEMOGLOBIN 9.5 GM/dL (11.7-16.9); MCH 22.9 pg (25.7-33.7); MCHC 30.8 g/dl (32.0-35.9); MEAN CELL VOLUME 74.3 fl (80-96); PLATELET COUNT 250 10^3/uL (134-434); RBC 4.15 M/mm3 (4.00-5.60); RDW 20.5 % (11.9-15.9); WHITE BLOOD COUNT 4.6 K/mm3 (4.0-10.0)
[2022-08-01 08:10] LABS: POTASSIUM 3.4 mmol/L (3.5-5.1)
[2022-08-01 08:16] LABS: CALCIUM 8.8 mg/dL (8.5-10.1)
[2022-08-01 08:17] LABS: ALBUMIN 3.3 g/dl (3.4-5.0); BLOOD UREA NITROGEN 5.7 mg/dL (7-18); MAGNESIUM 1.4 mg/dL (1.8-2.4)
[2022-08-01 08:20] LABS: CREATININE 0.7 mg/dL (0.55-1.3); PHOSPHOROUS 3.8 mg/dL (2.5-4.9)
[2022-08-01 08:22] LABS: BILIRUBIN,TOTAL 0.9 mg/dL (0.2-1); TOT PROT 6.5 g/dl (6.4-8.2)
[2022-08-01] MEDS ORDERED: ACETAMINOPHEN 1000 MG/100 ML BAG IVPB ONE (09:32)
[2022-08-01] MEDS ORDERED: MAGNESIUM 2GM/50ML STERILE WATER IVPB IVPB ONE (12:00)
[2022-08-01] MEDS: ALLOPURINOL 100 MG TABLET (FP) PO SCH ×2 (12:26→21:28)
[2022-08-01] MEDS: COLCHICINE 0.6 MG TAB PO SCH (12:26)
[2022-08-01] MEDS: UMECLIDINIUM/VILANTEROL (ANORO) 62.5/25 MCG INHALER IH SCH (12:26)
[2022-08-01] MEDS: CYANOCOBALAMIN 1,000 MCG TABLET (FP) PO SCH (12:27)
[2022-08-01] MEDS: POTASSIUM CHLORIDE TABS 20 MEQ TABLET.ER (FP) PO SCH (12:27)
[2022-08-01] MEDS: CEFTRIAXONE 1 GM in DEXTROSE 5%-WATER - 50 ML IVPB SCH (12:27)
[2022-08-01] MEDS: TOPIRAMATE 25 MG TABLET PO SCH ×2 (12:28→21:28)
[2022-08-01] MEDS: PANTOPRAZOLE SOD 40 MG SUSPENSION PACKET PO SCH (12:28)
[2022-08-01] MEDS: VILAZODONE HYDROCHLORIDE 20 MG TABLET PO SCH (13:07)
[2022-08-01] MEDS ORDERED: IRON SUCROSE INJECTION 200 MG in SODIUM CHLORIDE 90 ML IVPB ONE (13:30)
[2022-08-01] MEDS: KCL 10 MEQ IVPB 10 MEQ/100 ML INFUS.BAG IVPB SCH ×3 (14:45→17:30)
[2022-08-01] MEDS ORDERED: POTASSIUM CHLORIDE TABS 20 MEQ TABLET.ER (FP) PO ONE (17:37)
[2022-08-01 21:26] VITALS: RESP 18
[2022-08-01] MEDS: ALPRAZolam 1 MG TABLET PO PRN (21:28)
[2022-08-01] MEDS: APIXABAN 5 MG TABLET PO SCH (21:28)
[2022-08-01] MEDS: ZOLPIDEM TARTRATE 5 MG TABLET PO PRN (21:28)
[2022-08-02] MEDS: INSULIN SLIDING SCALE (NOVOLOG) 1 VIAL SQ SCH ×2 (06:33→12:51)
[2022-08-02 07:06] LABS: HEMATOCRIT 28.1 % (35.4-49); HEMOGLOBIN 8.7 GM/dL (11.7-16.9); MCH 22.9 pg (25.7-33.7); MEAN CELL VOLUME 73.8 fl (80-96); MEAN PLT VOLUME 9.7 fl (7.5-11.1); PLATELET COUNT 243 10^3/uL (134-434); RBC 3.82 M/mm3 (4.00-5.60); RDW 20.5 % (11.9-15.9); WHITE BLOOD COUNT 4.3 K/mm3 (4.0-10.0)
[2022-08-02 07:33] LABS: POTASSIUM 3.6 mmol/L (3.5-5.1)
[2022-08-02 07:38] LABS: BLOOD UREA NITROGEN 5.4 mg/dL (7-18); CALCIUM 8.6 mg/dL (8.5-10.1)
[2022-08-02 07:39] LABS: ALBUMIN 3.1 g/dl (3.4-5.0); MAGNESIUM 1.9 mg/dL (1.8-2.4)
[2022-08-02 07:41] LABS: CREATININE 0.8 mg/dL (0.55-1.3); PHOSPHOROUS 3.4 mg/dL (2.5-4.9)
[2022-08-02 07:43] LABS: BILIRUBIN,TOTAL 0.8 mg/dL (0.2-1); TOT PROT 6.1 g/dl (6.4-8.2)
[2022-08-02] MEDS ORDERED: MAGNESIUM SULF 50% (8.12 MEQ/2 ML-1 GM VIAL) IVPB ONE (08:14)
[2022-08-02] MEDS ORDERED: POTASSIUM CHLORIDE TABS 20 MEQ TABLET.ER (FP) PO ONE (08:14)
[2022-08-02] MEDS: COLCHICINE 0.6 MG TAB PO SCH (10:46)
[2022-08-02] MEDS: ALLOPURINOL 100 MG TABLET (FP) PO SCH (10:46)
[2022-08-02] MEDS: CYANOCOBALAMIN 1,000 MCG TABLET (FP) PO SCH (10:46)
[2022-08-02] MEDS: PANTOPRAZOLE SOD 40 MG SUSPENSION PACKET PO SCH (10:46)
[2022-08-02] MEDS: APIXABAN 5 MG TABLET PO SCH (10:46)
[2022-08-02] MEDS: CEFTRIAXONE 1 GM in DEXTROSE 5%-WATER - 50 ML IVPB SCH (10:47)
[2022-08-02] MEDS: UMECLIDINIUM/VILANTEROL (ANORO) 62.5/25 MCG INHALER IH SCH (10:47)
[2022-08-02] MEDS: ALPRAZolam 1 MG TABLET PO PRN (10:50)
[2022-08-02] MEDS: TOPIRAMATE 25 MG TABLET PO SCH (10:51)
[2022-08-02 12:31] VITALS: BP 97/57; PULSE 72; TEMP 97.7
[2022-08-02] MEDS: VILAZODONE HYDROCHLORIDE 20 MG TABLET PO SCH (12:50)
== END 2022-08-02 15:44 | disposition home or self-care (01) | DRG 663 ==
LOC: JER 23:35 → JERBED 07-27 02:31 → J4W 07-27 13:30 → OBSVTOIN 07-28 10:22
PROVIDERS: ADMIT Internal Medicine; ATTEND Internal Medicine
PROC: 30233N1 Transfusion of Nonautologous Red Blood Cells into Peripheral Vein, Percutaneous Approach (ICD-10-PCS; 2022-07-28)
PROC: 0DJD8ZZ Inspection of Lower Intestinal Tract, Via Natural or Artificial Opening Endoscopic (ICD-10-PCS; principal; 2022-07-31 10:45)
PROC: 0DB98ZX Excision of Duodenum, Via Natural or Artificial Opening Endoscopic, Diagnostic (ICD-10-PCS; 2022-08-01)
PROC: 0DB78ZX Excision of Stomach, Pylorus, Via Natural or Artificial Opening Endoscopic, Diagnostic (ICD-10-PCS; 2022-08-01)
DX: D50.9 Iron deficiency anemia, unspecified (principal); I10 Essential (primary) hypertension; I95.1 Orthostatic hypotension; E78.5 Hyperlipidemia, unspecified; K21.9 Gastro-esophageal reflux disease without esophagitis; M10.9 Gout, unspecified; F41.8 Other specified anxiety disorders; E86.0 Dehydration; E11.9 Type 2 diabetes mellitus without complications; K80.20 Calculus of gallbladder without cholecystitis without obstruction; I48.0 Paroxysmal atrial fibrillation; K31.7 Polyp of stomach and duodenum; K64.8 Other hemorrhoids; K29.70 Gastritis, unspecified, without bleeding; R00.1 Bradycardia, unspecified; K57.30 Diverticulosis of large intestine without perforation or abscess without bleeding; R63.4 Abnormal weight loss; Z68.28 Body mass index [BMI] 28.0-28.9, adult; Z98.0 Intestinal bypass and anastomosis status
CPT/HCPCS: 0241U-QW; 36415; 36430; 70450-TC; 71045-TC-FY; 74018-TC-FY; 74178-TC; 76705-TC; 80048; 80053; 80076; 80307; 81003; 81015; 82248; 82550; 82607; 82728; 82746; 82962; 83010; 83036; 83540; 83550; 83615; 83735; 84100; 84443; 84466; 84484; 85025; 85027; 85045; 85610; 85730; 86850; 86900; 86901; 86922; 88305-TC; 93005; 93010; 93306-TC; 93880-TC; 99285-25; G0378; J1756; P9058; Q0162; Q9967

== ENCOUNTER 2022-11-29 16:19 | Emergency (ER) | payer OTHER ==
[2022-11-29 16:40] VITALS: BMI 29.2
[2022-11-29] MEDS ORDERED: ACETAMINOPHEN 1000 MG/100 ML BAG IVPB ONE (17:46)
[2022-11-29] MEDS ORDERED: ACETAMINOPHEN INJECTION 100 ML IVPB ONE (17:53)
[2022-11-29 18:31] LABS: INR 1.27 (0.83-1.09); PROTHROMBIN TIME (PATIENT) 14.7 SEC (9.7-13.0)
[2022-11-29 18:34] LABS: ACTIVATED PTT 33.7 SECONDS (25.2-36.5)
[2022-11-29 18:45] LABS: BASO % 1.1 % (0-2.0); EOS % 1.3 % (0-4.5); HEMATOCRIT 34.7 % (35.4-49); HEMOGLOBIN 10.2 GM/dL (11.7-16.9); LYMPH % 21.1 % (8-40); MCH 22.3 pg (25.7-33.7); MCHC 29.3 g/dl (32.0-35.9); MONO % 8.9 % (3.8-10.2); NEUT % 67.6 % (42.8-82.8); PLATELET COUNT 276 10^3/uL (134-434); RBC 4.56 M/mm3 (4.00-5.60); RDW 23.2 % (11.9-15.9)
[2022-11-29 18:47] LABS: POTASSIUM 4.2 mmol/L (3.5-5.1)
[2022-11-29 18:50] LABS: CALCIUM 8.4 mg/dL (8.5-10.1)
[2022-11-29 18:51] LABS: ALBUMIN 3.5 g/dl (3.4-5.0)
[2022-11-29 18:53] LABS: CREATININE 0.7 mg/dL (0.55-1.3)
[2022-11-29 18:55] LABS: BILIRUBIN,TOTAL 0.6 mg/dL (0.2-1); TOT PROT 6.7 g/dl (6.4-8.2)
[2022-11-29 19:03] LABS: URINE APPEARANCE CLEAR; URINE BILIRUBIN NEGATIVE (NEGATIVE); URINE COLOR YELLOW; URINE GLUCOSE (UA) NEGATIVE (NEGATIVE); URINE KETONE NEGATIVE (NEGATIVE); URINE LEUK ESTERASE NEGATIVE (NEGATIVE); URINE NITRITE NEGATIVE (NEGATIVE); URINE PROTEIN NEGATIVE (NEGATIVE)
[2022-11-29] MEDS ORDERED: LACTATED RINGERS SOLUTION 1000 ML INFUS.BAG IV ONE (21:11)
[2022-11-29 22:06] LABS: ANISOCYTOSIS 3+; MACROCYTOSIS 0
[2022-11-29] MEDS ORDERED: PANTOPRAZOLE SODIUM 40 MG VIAL IVPUSH ONE (23:33)
[2022-11-29] MEDS ORDERED: PANTOPRAZOLE SODIUM 40 MG VIAL ONE (23:35)
[2022-11-30] MEDS ORDERED: KETOROLAC TROMETHAMINE 15 MG/ML VIAL IVPUSH ONE (01:29)
[2022-11-30] MEDS ORDERED: KETOROLAC TROMETHAMINE 15 MG/ML VIAL ONE (01:34)
[2022-11-30 01:47] VITALS: BP 125/71; PULSE 65; RESP 18; TEMP 97.6
== END 2022-11-30 01:49 | disposition home or self-care (01) ==
LOC: JER 16:19
PROC: 3E033NZ Introduction of Analgesics, Hypnotics, Sedatives into Peripheral Vein, Percutaneous Approach (ICD-10-PCS; principal; 2022-11-29)
PROC: 3E033GC Introduction of Other Therapeutic Substance into Peripheral Vein, Percutaneous Approach (ICD-10-PCS; 2022-11-29)
PROC: 3E0333Z Introduction of Anti-inflammatory into Peripheral Vein, Percutaneous Approach (ICD-10-PCS; 2022-11-30)
DX: R10.30 Lower abdominal pain, unspecified (principal); K80.20 Calculus of gallbladder without cholecystitis without obstruction; R05.9 Cough, unspecified; R06.7 Sneezing; R11.10 Vomiting, unspecified
CPT/HCPCS: 36415; 74177-TC; 76705-TC; 80053; 81003; 83605; 85025; 85610; 85730; 86850; 86900; 86901; 87086; 99285-25; Q9967